=== PATIENT | male | born 1975 | race Caucasian/White ===

== ENCOUNTER 2016-08-25 18:02 | Emergency (ER) | payer MEDICARE | END 2016-08-25 21:45 | disposition home or self-care (01) | LOC: ER1 18:02 | DX: S60.551A Superficial foreign body of right hand, initial encounter (principal); F17.210 Nicotine dependence, cigarettes, uncomplicated; W45.8XXA Other foreign body or object entering through skin, initial encounter; W11.XXXA Fall on and from ladder, initial encounter; Y92.009 Unspecified place in unspecified non-institutional (private) residence as the place of occurrence of the external cause | CPT/HCPCS: 73130; 99283 ==

== ENCOUNTER → 2021-04-29 | Outpatient (CLI) | payer MEDICARE ==
[~2021-04-29] MED LIST: BACTRIM DS TAB1 EACH PO; INVANZ 1 GM VIAL1 GM IM; KEFLEX CAP 500500 MG PO; NORCO 7.5-3251 EACH PO; PRILOSEC OTC20 MG PO
== END ==
LOC: KOH-I 10:30
DX: M25.561 Pain in right knee (principal)
CPT/HCPCS: 73562